=== PATIENT | female | born 1980 | race Caucasian/White ===

== ENCOUNTER 2020-04-26 23:31 | Emergency (ER) | payer OTHER, SELFPAY ==
--- NOTE | ~2020-04-26 | XR_ITS ---
XR chest 1V portable DATE: 04/27/2020 00:21 INDICATION: Cough, shortness of breath TECHNIQUE: Portable AP chest on January 25, 2021 at 0021 hours COMPARISON: None FINDINGS: Mild patchy infiltrate is suggested in the left midlung. The lungs otherwise appear clear. No pleural effusion or pulmonary vascular congestion or pneumothorax. Normal heart size. No hilar or mediastinal enlargement. IMPRESSION: Mild infiltrate is suggested in the left midlung Dr. Castellanos notified emergency room physician Dr. Jacob rios of the findings on April 27, 2020 at 091 5 hours. Reviewed, dictated and finalized at location A. [employer] IMPRESSION: Mild infiltrate is suggested in the left midlung Dr. Castellanos notified emergency room physician Dr. Jacob rios of the findings on 2020 at 0915 hours.
[2020-04-26 23:39] VITALS: BP 93/55; PULSE 83; RESP 20; TEMP 36.4; O2SAT 95
[2020-04-27] MEDS: IPRATROPIUM BR 0.02% INH SOLN 0.5 MG/2.5 ML VIAL INHALATION (00:01)
[2020-04-27] MEDS: ALBUTEROL SULFATE NEB 2.5 MG/0.5 ML INH 5 MG INHALATION (00:01)
[2020-04-27 00:02] VITALS: PULSE 93; RESP 18
--- NOTE | 2020-04-27 00:02 | ED.GENADULT ---
HPI - General Adult General Chief complaint: Alcohol Stated complaint: etoh, difficulty breathing Time Seen by Provider: 04/26/20 23:45 Source: RN notes reviewed History of Present Illness HPI narrative: Patient presents to emergency department from police station via EMS for alcohol intoxication patient states that she woke at the police station was unsure how she got there. She states that at that time when she first awoke and she was mildly anxious as she was unsure where she was and she felt short of breath with that she states she has a history of COPD and smokes daily states that this time she is feeling better she denies any fevers or chills chest pain abdominal pain nausea or vomiting or any other symptoms she states she drinks 1/5 of vodka daily she has no other complaints at this time Related Data Allergies Allergy/AdvReac Type Severity Reaction Status Date / Time prednisone Allergy Intermediate Hives / Verified 06/30/18 08:58 Red Face Review of Systems Review of Systems: Narrative: Gen.: Denies fevers or chills ENT: Denies congestion Respiratory: See HPI CV: Denies chest pain or palpitations GI: Denies abdominal pain nausea, emesis or diarrhea Musculoskeletal: Denies back pain or muscle pain Neuro: Denies numbness, tingling, weakness or focal weakness Skin: Denies rash Except as documented, all other systems reviewed and negative [facility] Past Medical History Medical History (Updated 04/27/20 @ 00:36 by Adolfo Melgar DO) COPD (chronic obstructive pulmonary disease) Social History Social History (Updated 04/27/20 @ 00:03 by Adolfo Melgar DO) Smoking status: Current every day smoker Exam Narrative: Exam Narrative: APPEARANCE: No acute distress, nontoxic, resting in bed EYES: EOMI HEENT: Normocephalic, atraumatic, OMM RESPIRATORY: No respiratory distress wheezing in the upper lung avendano no rhonchi or rales CARDIOVASCULAR: Regular rate and rhythm without murmurs rubs or gallops. ABDOMINAL: Soft, nontender, nondistended, no rebound or guarding MUSCULOSKELETAl: Moves all extremities. No clubbing, cyanosis or edema. NEURO: Awake and alert x 4. Following commands, speech normal, no focal deficits SKIN:: Warm, dry. No rashes lesions or abrasions PSYCHIATRIC: Normal affect/mood, Course Course Emergency Course: Following breathing treatment lungs are clear to auscultation bilaterally Patient is awake and alert x4 she has been up walking in the emergency department with no difficulty and no need for assistance patient has significant other coming to pick her up feel the patient is stable for discharge at this time Discussed with patient results of workup and diagnosis. Discussed need for follow-up with primary care, proper use of medication, and reasons to return to the emergency department. Patient understands and agrees to current treatment plan Vital Signs Vital signs: Vital Signs Temperature 97.5 F L 04/26/20 23:39 Pulse Rate 83 04/26/20 23:39 Respiratory Rate 20 04/26/20 23:39 Blood Pressure 93/55 L 04/26/20 23:39 Pulse Oximetry 95 04/26/20 23:39 Temperature 97.5 F L 04/26/20 23:39 Pulse Rate 89 04/27/20 00:09 Respiratory Rate 18 04/27/20 00:09 Blood Pressure 106/85 04/27/20 00:20 Pulse Oximetry 95 04/26/20 23:39 Medical Decision Making Vital Signs Vital Signs: Vital Signs Temperature 97.5 F L 04/26/20 23:39 Pulse Rate 83 04/26/20 23:39 Respiratory Rate 20 04/26/20 23:39 Blood Pressure 93/55 L 04/26/20 23:39 Pulse Oximetry 95 04/26/20 23:39 Temperature 97.5 F L 04/26/20 23:39 Pulse Rate 89 04/27/20 00:09 Respiratory Rate 18 04/27/20 00:09 Blood Pressure 106/85 04/27/20 00:20 Pulse Oximetry 95 04/26/20 23:39 Imaging Data Attestation: I personally reviewed and interpreted this imaging study as follows: My impression: Chest x-ray reviewed by myself shows no acute process Discharge Plan Discharge Clinical Impressi
[2020-04-27 00:09] VITALS: PULSE 89; RESP 18
[2020-04-27 00:20] VITALS: BP 106/85
== END 2020-04-27 01:06 | disposition home or self-care (01) ==
PROVIDERS: Emergency Provider Emergency Medicine; PCP Internal Medicine
DX: J44.9 Chronic obstructive pulmonary disease, unspecified (principal); F17.200 Nicotine dependence, unspecified, uncomplicated
CPT/HCPCS: 71045; 94640; 99283